=== PATIENT | male | born 2000 | race Caucasian/White ===

== ENCOUNTER → 2025-02-02 09:25 | Outpatient (BNVA) | payer MEDICARE, SELFPAY | PROVIDERS: PCP Nurse Practitioner Family; Visit Provider Nurse Practitioner Family | DX: R63.4 Abnormal weight loss (principal); Z13.1 Encounter for screening for diabetes mellitus; Z13.6 Encounter for screening for cardiovascular disorders; R63.1 Polydipsia | CPT/HCPCS: 80053; 80061; 82607; 82962; 83036; 84439; 84443; 85025 ==